=== PATIENT | male | born 1985 | race Caucasian/White ===

== ENCOUNTER 2017-02-23 11:54 | Emergency (ER) | payer BC ==
--- NOTE | 2017-02-23 12:11 | ED.PDOC ---
History of Present Illness - General Chief Complaint: Lower Extremity Injury Stated Complaint: Bilateral 1st toe pain Time Seen by Provider: 02/23/17 11:55 Source: patient, RN notes reviewed, Vital Signs reviewed Exam Limitations: no limitations - History of Present Illness Initial Comments: Patient comes in with c/o of bilateral great toe pain. With one foot he kicked a tree because he was mad. That made him madder so he kicked his golf bag with the other foot. Now he is concerned that he broke both his toes. Occurred: just prior to arrival Pain - Lower Extremity: moderate: Left Foot, Right Foot Method of Injury: direct blow Improving Factors: rest Worsening Factors: movement Allergies/Adverse Reactions: Allergies NO KNOWN ALLERGY Allergy (Verified 02/10/16 02:53) Home Medications: Ambulatory Orders Ondansetron Tab [Zofran Tab] 4 mg PO Q4H PRN #10 tab 02/08/16 Famotidine [Pepcid Tab] 20 mg PO BID #60 tab 02/10/16 Ondansetron [Zofran Odt] 4 mg PO Q4H PRN #10 tab 02/10/16 Promethazine Tab [Phenergan Tablet] 25 mg PO Q6H PRN #10 tab 02/10/16 Acetamin W/Cod #3 Tab [Tylenol w/CODEINE #3] 1 - 2 ea PO Q6HR PRN #20 tab Review of Systems - Review of Systems Constitutional: States: no symptoms reported Respiratory: States: no symptoms reported Cardiology: States: no symptoms reported Gastrointestinal/Abdominal: States: no symptoms reported Musculoskeletal: States: see HPI, joint pain - Bilater great toes, joint swelling - bilateral great toes Skin: States: no symptoms reported Neurological: States: no symptoms reported. Denies: numbness, paresthesia, tingling All other Systems: No Change from Baseline Past Medical History (General) - Patient Medical History Hx Seizures: No Hx Stroke: No Hx Dementia: No Hx Asthma: No Hx of COPD: No Hx Cardiac Disorders: No Hx Congestive Heart Failure: No Hx Pacemaker: No Hx Hypertension: No Hx Thyroid Disease: No Hx Diabetes: No Hx Gastroesophageal Reflux: Yes Hx Renal Disease: No Hx Cancer: No Hx of HIV: No Hx Hepatitis C: No Hx MRSA: No - Vaccination History Hx Tetanus, Diphtheria Vaccination: No Hx Influenza Vaccination: No Hx Pneumococcal Vaccination: No - Social History Hx Tobacco Use: Yes Hx Chewing Tobacco Use: No Hx Alcohol Use: Yes Hx Substance Use: No Hx Substance Use Treatment: No Hx Depression: No Hx Physical Abuse: No Hx Emotional Abuse: No Hx Suspected Abuse: No - Female History Patient : No Family Medical History - Family History Mother Family History: No Known Living Status: Still Living Physical Exam - Physical Exam General Appearance: Alert, Comfortable, No apparent distress, Well Developed, Well Groomed, Well Hydrated, Well Nourished Cardiovascular/Respiratory: normal peripheral pulses, other - brisk capillary refill bilateral great toes Leg: normal inspection, non-tender, no evidence of injury Ankle: normal inspection, non-tender, no evidence of injury, normal ROM Foot: bone tenderness - Bilateral 1st MTP joints with swelling, bruising, tenderness and decreased ROM due to pain, ecchymosis, limited ROM, swelling Neuro/Tendon: normal sensation, normal motor functions, normal tendon functions Mental Status: alert, oriented x 3 Skin: normal color - except as noted above, warm/dry Progress - Progress Progress: 02/23/17 13:[address] patient in bilateral post op shoes with no weight bearing until follow up with Dr. Steele next week. - EKG/XRAY/CT XRAY: Toes: Bilateral first toe proximal phalynx fractures - intra-articular per Radiologist Departure - Departure Clinical Impression: Fracture of toe of left foot Qualifiers: Encounter type: initial encounter Toe: great toe Fracture type: closed Phalanx : proximal Fracture alignment: nondisplaced Qualified Code(s): S92.415A - Nondisplaced fracture of proximal phalanx of left great toe, initial encounter for closed fracture Fracture of toe of right foot Qualifiers: Encounter type: initial encounter Toe: great toe Fracture type: closed Phalanx : proximal Fracture alignment: nondisplaced Qualified Code(s): S92.414A - Nondisplaced fracture of proximal phalanx of right great toe, initial encounter for closed fracture Time of Disposition: 13:17 Disposition: Discharge to Home or Self Care Condition: Good Departure Forms: ED Discharge - Pt. Copy, Patient Portal Self Enrollment, Work Release Form Instructions: DI for Toe Fracture Diet: resume usual diet Activity: other - No Weight Bearing at all. Referrals: Felice Steele MD [Active Staff] - 1-5 Days Prescriptions: Acetamin W/Cod #3 Tab [Tylenol w/CODEINE #3] 1 - 2 ea PO Q6HR PRN #20 tab PRN Reason: Moderate To Severe Pain Home Medications: Ambulatory Orders Ondansetron Tab [Zofran Tab] 4 mg PO Q4H PRN #10 tab 02/08/16 Famotidine [Pepcid Tab] 20 mg PO BID #60 tab 02/10/16 Ondansetron [Zofran Odt] 4 mg PO Q4H PRN #10 tab 02/10/16 Promethazine Tab [Phenergan Tablet] 25 mg PO Q6H PRN #10 tab 02/10/16 Acetamin W/Cod #3 Tab [Tylenol w/CODEINE #3] 1 - 2 ea PO Q6HR PRN #20 tab
[2017-02-23 12:13] VITALS: TEMP 99.6; O2SAT 97
[2017-02-23] MEDS ORDERED: IBUPROFEN 200 MG TAB PO ONE (12:49)
[2017-02-23 12:56] VITALS: BP 118/71
--- NOTE | 2017-02-23 13:05 | RAD ---
EXAM DESCRIPTION: Right toes CLINICAL HISTORY: Pain. Kicked a tree FINDINGS/ IMPRESSION: Fracture proximal phalanx great toe, oblique longitudinal with intra-articular extension into the metatarsal phalangeal joint. Separation of the subchondral cortex 2 mm. Maximum separation along the mid diaphysis plantar aspect 2-3 mm No other fracture Electronically signed by: Baljit Chambers MD 02/23/2017 1:04 PM CDT
--- NOTE | 2017-02-23 13:07 | RAD ---
EXAM DESCRIPTION: Left toes, 3 views CLINICAL HISTORY: Pain. Kicked a tree FINDINGS/ IMPRESSION: Fracture proximal phalanx. Comminuted fracture with intra-articular extension. Impaction of the plantar fracture fragment about 2 mm. There is an angulated displaced fragment seen on the lateral projection which is about 5 mm impacted. Significant deformity of the subchondral cortex at the metatarsal phalangeal joint No other fractures Electronically signed by: Baljit Chambers MD 02/23/2017 1:06 PM CDT
== END 2017-02-23 13:38 | disposition home or self-care (01) ==
LOC: ER 11:54
DX: S92.415A Nondisplaced fracture of proximal phalanx of left great toe, initial encounter for closed fracture (principal); S92.414A Nondisplaced fracture of proximal phalanx of right great toe, initial encounter for closed fracture; K21.9 Gastro-esophageal reflux disease without esophagitis; Z87.891 Personal history of nicotine dependence; Z79.899 Other long term (current) drug therapy; W22.09XA Striking against other stationary object, initial encounter

== ENCOUNTER → 2017-03-02 | Outpatient (CLI) | payer BC ==
--- NOTE | 2017-03-05 07:48 | RAD ---
EXAM DESCRIPTION: Toes,Left (accession [id number]), Toes,Right (accession [id number]) CLINICAL HISTORY: 31 years Male, PAIN IN LEFT TOES; GREAT TOE fractures both great toes COMPARISON: Prior studies February 23, 2017 FINDINGS: On the right, minimally displaced fracture at the volar base of the first proximal phalanx extending to the articular surface is unchanged in alignment with the fracture line slightly less distinct but still evident in comparison to recent prior study. Alignment remains near-anatomic with approximately 2 mm of displacement and no significant angulation. Slight irregularity of the distal phalangeal tuft is noted an additional toe fractures are not apparent. On the left fracture at the volar base of the first proximal phalanx with slight comminution and impaction of the proximal laryngeal proximal articular surface is noted and little changed from prior study. Slightly greater displacement and impaction of the small fragment of bone is unchanged with incomplete healing. The distal phalanx is intact. IMPRESSION: Stable intra-articular fractures of each great toe involving the volar base of the proximal phalanx on each side with essentially anatomic alignment on the right and stable slight displacement and impaction and comminution of the fracture on the left. No significant change from prior study. Electronically signed by: Baljit Ewing MD 03/05/2017 7:47 AM CDT
== END | disposition home or self-care (01) ==
LOC: RAD 08:15
PROVIDERS: ATTEND Orthopaedic Surgery
DX: M79.675 Pain in left toe(s) (principal)

== ENCOUNTER → 2017-03-15 | Outpatient (CLI) | payer BC ==
--- NOTE | 2017-03-15 16:16 | RAD ---
EXAM DESCRIPTION: Toes,Left CLINICAL HISTORY: 31 years, Male, CLOSED FRACTURE OF PHALANX OF FOOT COMPARISON: March 02 FINDINGS: Vertical mildly comminuted fracture proximal lateral base distal 1st phalange has stable alignment compared to prior study. Less soft tissue swelling around the fracture. Some narrowing and spurring lateral aspect of the distal 1st phalanx at the elbow joint. IMPRESSION: Stable appearance vertical slightly distracted fracture proximal lateral base proximal 1st phalange with some minimal healing. Less soft tissue swelling compared to March 02 Electronically signed by: Jose Hernandez MD 03/15/2017 4:15 PM CDT
--- NOTE | 2017-03-15 16:25 | RAD ---
EXAM DESCRIPTION: Toes,Right CLINICAL HISTORY: 31 years, Male, CLOSED FRACTURE OF PHALANX OF FOOT COMPARISON: March 02 FINDINGS: Vertical fracture midportion of the proximal 1st phalange with intra-articular extension. Less soft tissue swelling and some interval healing. IMPRESSION: Stable alignment intra-articular fracture proximal 1st phalange with some interval healing. Less soft tissue swelling compared to prior Electronically signed by: Jose Hernandez MD 03/15/2017 4:24 PM CDT
== END | disposition home or self-care (01) ==
LOC: RAD 08:32
PROVIDERS: ATTEND Orthopaedic Surgery
DX: S92.911D Unspecified fracture of right toe(s), subsequent encounter for fracture with routine healing (principal); S92.912D Unspecified fracture of left toe(s), subsequent encounter for fracture with routine healing

== ENCOUNTER → 2017-04-05 | Outpatient (CLI) | payer BC ==
--- NOTE | 2017-04-05 11:47 | RAD ---
EXAM DESCRIPTION: Toes,Left CLINICAL HISTORY: CLOSED FX OF PHALANX OF FOOT- BILATERAL COMPARISON: 15 March 2017 TECHNIQUE: 3 views left FINDINGS: The exam demonstrates a fracture of the base of the proximal phalanx of the first digit. Callus formation is observed across the fracture site. There has been evidence of interval healing. No new injury is detected. IMPRESSION: Healing fracture the base of the proximal phalanx of the first digit of the left foot Electronically signed by: Leandro Pro MD 04/05/2017 11:46 AM CDT
--- NOTE | 2017-04-05 12:37 | RAD ---
EXAM DESCRIPTION: Toes,Right CLINICAL HISTORY: CLOSED FX OF PHALANX OF FOOT COMPARISON: 15 March 2017 TECHNIQUE: 3 views right FINDINGS: The exam again demonstrates a vertically oriented fracture through the proximal aspect of the proximal phalanx of the first digit. Fracture is less discernible on today's examination. Callus formation is seen to bridge the fracture site. No new or further injury is detected. IMPRESSION: Healing fracture of the proximal aspect of the proximal phalanx of the first digit. Electronically signed by: Leandro Pro MD 04/05/2017 12:35 PM CDT
== END | disposition home or self-care (01) ==
LOC: RAD 07:45
PROVIDERS: ATTEND Orthopaedic Surgery
DX: S92.911D Unspecified fracture of right toe(s), subsequent encounter for fracture with routine healing (principal); S92.912D Unspecified fracture of left toe(s), subsequent encounter for fracture with routine healing

== ENCOUNTER → 2018-01-29 | Outpatient (CLI) | payer BC | LOC: YCFC.O 10:13 | DX: K21.9 Gastro-esophageal reflux disease without esophagitis (principal) ==